=== PATIENT | female | born 1995 | race Caucasian/White ===

== ENCOUNTER → 2016-09-23 | Outpatient (REF) | payer OTHER | LOC: M LAB REF 17:03 | PROVIDERS: ATTEND Family Medicine | DX: R30.0 Dysuria (principal) ==

== ENCOUNTER → 2017-02-03 | Outpatient (CLI) | payer OTHER | LOC: M SMT 10:49 | PROVIDERS: ATTEND Physician Assistant Medical | DX: Z11.3 Encounter for screening for infections with a predominantly sexual mode of transmission (principal); J02.9 Acute pharyngitis, unspecified ==

== ENCOUNTER → 2017-09-29 | Outpatient (CLI) | payer OTHER ==
[2017-09-29 18:43] LABS: TESTOSTERONE 33 NG/DL (14-76)
[2017-09-29 18:43] LABS: FOLLICLE STIMULATING HORMONE 9.6 mIU/mL; LUTEINIZING HORMONE 58.6 mIU/mL
[2017-09-29 18:59] LABS: FREE T4 0.91 NG/DL (0.76-1.46)
== END ==
LOC: M LRY 12:37
DX: N97.9 Female infertility, unspecified (principal)

== ENCOUNTER → 2017-10-13 | Outpatient (REF) | payer OTHER | LOC: M LAB REF 17:38 | DX: B37.3 Candidiasis of vulva and vagina (principal) | CPT/HCPCS: 87070 ==

== ENCOUNTER → 2018-01-28 | Outpatient (CLI) | payer OTHER ==
[2018-01-28 16:28] LABS: BASO % 0.2 % (0.0-1.0); EOS # 0.1 10^3/uL (0.0-0.50); EOS % 0.4 % (0.0-3.0); HEMATOCRIT 39.5 % (36.0-47.0); HEMOGLOBIN 13.4 g/dl (12.0-15.5); IMMATURE GRANULOCYTE % 0.5 % (0-3.0); LYMPH % 16.8 % (24.0-44.0); MEAN CORPUSCULAR HEMOGLOBIN 29.6 pg (27.0-33.0); MEAN CORPUSCULAR HGB CONC 33.9 g/dl (32.0-36.5); MEAN CORPUSCULAR VOLUME 87.2 fl (80.0-96.0); MONO # 0.8 10^3/uL (0.0-0.8); MONO % 6.5 % (0.0-5.0); NEUTROPHILS # 8.9 10^3/uL (1.8-7.7); NEUTROPHILS % 75.6 % (36.0-66.0); PLATELET COUNT, AUTOMATED 263 10^3/uL (150-450); RED BLOOD COUNT 4.53 10^6/uL (4.00-5.40); RED CELL DISTRIBUTION WIDTH 12.5 % (11.5-14.5); WHITE BLOOD COUNT 11.8 10^3/uL (4.0-10.0)
[2018-01-28 18:47] LABS: CHLAMYDIA DNA AMPLIFICATION NEGATIVE (NEGATIVE); GC DNA AMPLIFICATION NEGATIVE (NEGATIVE)
[2018-01-31 09:32] LABS: RUBELLA IgG QUALITATIVE IMMUNE (IMMUNE)
[2018-01-31 09:33] LABS: HBsAg Prenatal NEGATIVE (NEGATIVE)
[2018-01-31 10:00] LABS: HEPATITIS C VIRUS ABY INDEX < 0.0 INDEX (<0.8)
[2018-01-31 12:31] LABS: HIV 1&2 SCREEN CENTAUR NEGATIVE (NEGATIVE)
== END ==
LOC: M LRY 13:17
DX: Z34.81 Encounter for supervision of other normal pregnancy, first trimester (principal); Z3A.10 10 weeks gestation of pregnancy
CPT/HCPCS: 86762

== ENCOUNTER → 2018-02-01 | Outpatient (REF) | payer OTHER | LOC: M LAB REF 16:50 | DX: R30.0 Dysuria (principal) ==

== ENCOUNTER → 2018-02-04 | Outpatient (REF) | payer OTHER | LOC: M LAB REF 13:14 | DX: Z34.82 Encounter for supervision of other normal pregnancy, second trimester (principal) | CPT/HCPCS: 87086 ==

== ENCOUNTER → 2018-04-04 | Outpatient (CLI) | payer OTHER | LOC: M RAD 10:34 | DX: Z34.82 Encounter for supervision of other normal pregnancy, second trimester (principal); Z3A.20 20 weeks gestation of pregnancy; Z36.89 Encounter for other specified antenatal screening | CPT/HCPCS: 76811 ==

== ENCOUNTER → 2018-04-12 | Outpatient (REF) | payer OTHER | LOC: M LAB REF 16:58 | DX: J02.9 Acute pharyngitis, unspecified (principal) ==

== ENCOUNTER → 2018-05-09 | Outpatient (CLI) | payer OTHER ==
[2018-05-09 16:50] LABS: HEMATOCRIT 31.1 % (36.0-47.0); HEMOGLOBIN 10.3 g/dl (12.0-15.5); MEAN CORPUSCULAR HGB CONC 33.1 g/dl (32.0-36.5); MEAN CORPUSCULAR VOLUME 90.7 fl (80.0-96.0); PLATELET COUNT, AUTOMATED 213 10^3/uL (150-450); RED BLOOD COUNT 3.43 10^6/uL (4.00-5.40); RED CELL DISTRIBUTION WIDTH 12.7 % (11.5-14.5); WHITE BLOOD COUNT 10.9 10^3/uL (4.0-10.0)
[2018-05-09 17:23] LABS: GLUCOSE CHALLENGE TEST 1 HOUR 129 MG/DL (LESS THAN 140)
== END ==
LOC: M LAB 15:10
DX: Z34.82 Encounter for supervision of other normal pregnancy, second trimester (principal); Z36.89 Encounter for other specified antenatal screening
CPT/HCPCS: 76816

== ENCOUNTER → 2018-05-09 | Outpatient (CLI) | payer OTHER | LOC: M RAD 13:53 | DX: Z34.82 Encounter for supervision of other normal pregnancy, second trimester (principal); Z3A.24 24 weeks gestation of pregnancy ==

== ENCOUNTER → 2018-07-27 | Outpatient (REF) | payer OTHER | LOC: M LAB REF 17:13 | DX: Z34.83 Encounter for supervision of other normal pregnancy, third trimester (principal) ==

== ENCOUNTER → 2018-07-28 | Outpatient (CLI) | payer OTHER | LOC: M RAD 10:59 | DX: O28.3 Abnormal ultrasonic finding on antenatal screening of mother (principal); Z3A.37 37 weeks gestation of pregnancy | CPT/HCPCS: 76816 ==

== ENCOUNTER 2018-08-15 06:23 | Inpatient (IN) | payer OTHER ==
[2018-08-15 08:23] LABS: HEMATOCRIT 34.4 % (36.0-47.0); HEMOGLOBIN 11.2 g/dl (12.0-15.5); MEAN CORPUSCULAR HEMOGLOBIN 28.4 pg (27.0-33.0); MEAN CORPUSCULAR HGB CONC 32.6 g/dl (32.0-36.5); MEAN CORPUSCULAR VOLUME 87.3 fl (80.0-96.0); PLATELET COUNT, AUTOMATED 187 10^3/uL (150-450); RED BLOOD COUNT 3.94 10^6/uL (4.00-5.40); RED CELL DISTRIBUTION WIDTH 13.2 % (11.5-14.5); WHITE BLOOD COUNT 8.4 10^3/uL (4.0-10.0)
[2018-08-15] MEDS: miSOPROStol 50 MCG 1/2 TAB (S0191) SL ×2 (09:10→13:19)
[2018-08-15] MEDS: LR 1,000 ML IV (16:38)
[2018-08-15] MEDS ORDERED: FENTANYL 2MCG/ML ROPIVACAINE 0.2% IN 0.9% NACL 200ML IVBAG As Ordered (17:36)
[2018-08-15] MEDS ORDERED: LACTATED RINGER'S 1000 ML IV (18:30)
[2018-08-15] MEDS ORDERED: EPIDURAL COMMENT XX (18:30)
[2018-08-15] MEDS ORDERED: NALOXONE INJ 0.4 MG/1 ML VIAL (J2310) IV (18:30)
[2018-08-15] MEDS ORDERED: ONDANSETRON 4MG/2ML VIAL (J2405) IV ×2 (18:30→23:00)
[2018-08-15] MEDS ORDERED: FENTANYL/ROPIVACAINE/NACL BAG 200 ML EPIDURAL (18:30)
[2018-08-15] MEDS ORDERED: EPIDURAL/PCA KEYS XX (18:30)
[2018-08-15] MEDS ORDERED: diphenhydrAMINE INJ 50MG/ML VIAL (J1200) IV (18:30)
[2018-08-15] MEDS ORDERED: REFRIGERATOR IV KEYS XX (18:30)
[2018-08-15] MEDS: OXYTOCIN DRIP 30 UNITS in APPROPRIATE DILUENT 1 EA IV ×2 (18:30→22:59)
[2018-08-15] MEDS ORDERED: ePHEDrine SULFATE 25 MG/5 ML(5MG/ML) SYRINGE IV (18:30)
[2018-08-15] MEDS: IBUPROFEN 800 MG TAB PO (22:57)
[2018-08-15] MEDS ORDERED: RHOGAM 300 MCG (1500 IU) INJ (J2790) IM (23:00)
[2018-08-15] MEDS ORDERED: MEASLES,MUMPS,RUBELLA VACCINE INJ (MMR-II) (90707) SC (23:00)
[2018-08-15] MEDS ORDERED: METHYLERGONOVINE MALEATE 0.2 MG TAB PO (23:00)
[2018-08-16] MEDS: PRENATAL VITAMINS CHEWABLE TABLET PO (08:14)
[2018-08-16] MEDS: IBUPROFEN 800 MG TAB PO ×2 (08:15→15:39)
[2018-08-16] MEDS: DIBUCAINE 1% OINTMENT 30GM TOP (10:23)
[2018-08-16] MEDS: ACETAMINOPHEN 500 MG TAB PO (10:26)
[2018-08-16] MEDS: DOCUSATE SODIUM 100 MG CAP PO (17:24)
[2018-08-17] MEDS: IBUPROFEN 800 MG TAB PO ×2 (00:34→15:50)
[2018-08-17] MEDS: PRENATAL VITAMINS CHEWABLE TABLET PO (08:42)
== END 2018-08-17 15:45 | disposition home or self-care (01) | DRG 807 ==
LOC: M LDI 06:23 → M OBS 08-16 01:00
PROVIDERS: Advanced Practice Midwife
PROC: 10E0XZZ Delivery of Products of Conception, External Approach (ICD-10-PCS; principal; 2018-08-15)
PROC: 0KQM0ZZ Repair Perineum Muscle, Open Approach (ICD-10-PCS; 2018-08-15)
PROC: 3E0DXGC Introduction of Other Therapeutic Substance into Mouth and Pharynx, External Approach (ICD-10-PCS; 2018-08-15)
DX: O70.1 Second degree perineal laceration during delivery (principal); Z37.0 Single live birth; Z3A.39 39 weeks gestation of pregnancy

== ENCOUNTER → 2018-11-03 | Outpatient (REF) | payer OTHER ==
[~2018-11-03] MED LIST: IBUP-1114 PO; MAPA500T2 PO; PRENTAB9 PO; ZOFR4TAB16 PO
[2018-11-03 22:04] LABS: CHLAMYDIA DNA AMPLIFICATION NEGATIVE (NEGATIVE); GC DNA AMPLIFICATION NEGATIVE (NEGATIVE)
[2018-11-05 14:43] LABS: HPV HYBRID CAPTURE II Negative (Negative)
== END ==
LOC: M LAB REF 17:09
PROVIDERS: ATTEND Family Medicine
DX: Z11.3 Encounter for screening for infections with a predominantly sexual mode of transmission (principal); Z11.51 Encounter for screening for human papillomavirus (HPV)
CPT/HCPCS: 87491; 87591; 87624; G0123